=== PATIENT | male | born 1945 | race Caucasian/White ===

== ENCOUNTER → 2016-12-01 | Outpatient (REF) | payer MEDICARE, OTHER ==
[2016-12-01 14:27] LABS: RETICULOCYTE % ADVIA2120 1.5 % (0.5-1.5)
[2016-12-01 14:42] LABS: FERRITIN 116 NG/ML (26-388); IMMUNOGLOBULIN G 956 MG/DL (681-1648); IMMUNOGLOBULIN M 39.5 MG/DL (40-230); PERCENT SATURATION 28.8 % (19.7-37.4); TOTAL IRON BINDING CAPACITY 320 UG/DL (250-450); TOTAL PROTEIN 7.5 GM/DL (6.4-8.2)
[2016-12-02 12:49] LABS: ALBUMIN 4.67 GM/DL (3.29-5.55); ALBUMIN % 62.3 % (55.8-66.1); GAMMA GLOBULIN % 13.7 % (11.1-18.8)
== END ==
LOC: M LAB REF 12:47
PROVIDERS: ATTEND Internal Medicine
DX: E83.110 Hereditary hemochromatosis (principal); R59.9 Enlarged lymph nodes, unspecified; D47.2 Monoclonal gammopathy

== ENCOUNTER → 2018-01-08 | Outpatient (REF) | payer MEDICARE, OTHER ==
[2018-01-08 14:21] LABS: FERRITIN 69 NG/ML (26-388); IMMUNOGLOBULIN G 924 MG/DL (681-1648); IMMUNOGLOBULIN M 41.9 MG/DL (40-230); IRON (FE) 137 UG/DL (65-175); PERCENT SATURATION 40.5 % (19.7-50.0); TOTAL IRON BINDING CAPACITY 338 UG/DL (250-450); TOTAL PROTEIN 7.4 GM/DL (6.4-8.2)
[2018-01-09 10:19] LABS: ALBUMIN 4.72 GM/DL (3.29-5.55); ALBUMIN % 63.8 % (55.8-66.1); ALPHA-1-GLOBULIN % 3.3 % (2.9-4.9); ALPHA-1-GLOBULINS 0.24 GM/DL (0.17-0.41); ALPHA-2-GLOBULINS 0.54 GM/DL (0.42-0.99); ALPHA-2-GLOBULINS % 7.3 % (7.1-11.8); BETA-1-GLOBULINS 0.49 GM/DL (0.28-0.60); BETA-1-GLOBULINS % 6.6 % (4.7-7.2); BETA-2-GLOBULINS 0.44 GM/DL (0.19-0.55)
[2018-01-09 10:20] LABS: GAMMA GLOBULINS 0.96 GM/DL (0.65-1.58)
[2018-01-09 12:43] LABS: IMMUNOTYPING SERUM IGG ABNORMAL (NORMAL); IMMUNOTYPING SERUM LAMBDA ABNORMAL (NORMAL)
== END ==
LOC: M LAB REF 13:24
DX: E83.110 Hereditary hemochromatosis (principal); D47.2 Monoclonal gammopathy
CPT/HCPCS: 83550

== ENCOUNTER → 2022-02-07 | Outpatient (REF) | payer MEDICARE, OTHER ==
[2022-02-07 17:17] LABS: IRON (FE) 70 UG/DL (65-175); PERCENT SATURATION 24.1 % (19.7-50.0); TOTAL IRON BINDING CAPACITY 290 UG/DL (250-450)
[2022-02-08 12:34] LABS: ALBUMIN 4.49 GM/DL (3.29-5.55); ALBUMIN % 64.1 % (55.8-66.1); ALPHA-1-GLOBULIN % 3.5 % (2.9-4.9); ALPHA-1-GLOBULINS 0.25 GM/DL (0.17-0.41); ALPHA-2-GLOBULINS 0.53 GM/DL (0.42-0.99); ALPHA-2-GLOBULINS % 7.5 % (7.1-11.8); BETA-1-GLOBULINS 0.43 GM/DL (0.28-0.60); BETA-1-GLOBULINS % 6.2 % (4.7-7.2); BETA-2-GLOBULINS 0.37 GM/DL (0.19-0.55); BETA-2-GLOBULINS % 5.3 % (3.2-6.5); GAMMA GLOBULIN % 13.4 % (11.1-18.8); GAMMA GLOBULINS 0.94 GM/DL (0.65-1.58)
== END ==
LOC: M LAB REF 11:27
PROVIDERS: ATTEND Internal Medicine
DX: D47.2 Monoclonal gammopathy (principal); E83.110 Hereditary hemochromatosis

== ENCOUNTER 2024-04-29 16:51 | Emergency (ER) | payer MEDICARE, OTHER ==
[~2024-04-29] VITALS: Ht 175.3 cm; Wt 74.9 kg
[2024-04-29 16:57] VITALS: TEMP 98.1
[2024-04-29 18:30] VITALS: BP 134/65
[2024-04-29 18:36] VITALS: O2SAT 99
== END 2024-04-29 19:39 | disposition left against medical advice (07) ==
LOC: M ED 16:51
DX: R79.9 Abnormal finding of blood chemistry, unspecified (principal); Z88.8 Allergy status to other drugs, medicaments and biological substances; Z53.9 Procedure and treatment not carried out, unspecified reason